=== PATIENT | female | born 1935 | race Caucasian/White ===

== ENCOUNTER 2017-03-18 08:37 | Observation (INO) | payer MEDICARE, BC ==
[~2017-03-18] VITALS: Ht 162.6 cm; Wt 62.5 kg
[~2017-03-18 08:37] MED LIST: ASPI-664 PO; ATOR40TA68 PO; CALC-385 PO; CARV3.1260 PO; LORA1TAB PO; MECL12.5 PO; NIT4 SL; OMEP20CA16 PO; PENT400T2 PO; RANO500T2 PO; TICA60TA PO; VALS80TA2 PO
[2017-03-18 08:40] VITALS: Ht 162.6 cm; Wt 62.5 kg
[2017-03-18] MEDS ORDERED: ASPIRIN 81 MG TAB PO STA (08:46)
[2017-03-18] MEDS ORDERED: NITROGLYCERIN 2% 1 GM OINT PKT TD STA (08:46)
[2017-03-18] MEDS ORDERED: NITROGLYCERIN (SL) 0.4 MG TAB SL PRN (09:00)
[2017-03-18] MEDS ORDERED: METO-448 PO (09:15)
[2017-03-18] MEDS ORDERED: TICA90TA PO (09:15)
--- NOTE | 2017-03-18 09:34 | RADRPT ---
PROCEDURE: XR Chest. CLINICAL INDICATION: Chest pain TECHNIQUE: Single frontal view of the chest was obtained. COMPARISON: None FINDINGS: The heart is within normal limits. The thoracic aorta is calcified. There are mild chronic interstitial changes throughout the lungs. There is mild right upper lobe sc arring versus linear atelectasis. There is no pleural effusion or pneumothorax. There is right shoulder calcific tendonitis. RPTAT: AA IMPRESSION: Mild chronic interstitial changes. Mild right upper lobe scarring/atelectasis. No focal consolidation. Calcified aorta consistent with atherosclerotic disease. .Alberto Lew MD, Date Time Electronically viewed and signed by .Alberto Lew MD, on 03/18/2017 09:34 .S/
[2017-03-18 09:36] LABS: ADD SCAN DIFF NO
[2017-03-18 10:00] LABS: ANION GAP 11 (8-16); BLOOD UREA NITROGEN 15 mg/dl (7-20); CALCIUM 9.4 mg/dl (8.4-10.2); CARBON DIOXIDE 30 mmol/L (21-31); CHLORIDE 99 mmol/L (97-110); CREATININE 0.82 mg/dl (0.44-1.00); GLUCOSE 90 mg/dl (70-220); POTASSIUM 4.3 mmol/L (3.5-5.1); SODIUM 136 mmol/L (135-144)
[2017-03-18 10:08] LABS: INR 0.97; PARTIAL THROMBOPLASTIN TIME 27.6 Sec (25.0-35.0); PROTIME 12.9 Sec (12.2-14.2)
[2017-03-18 10:14] LABS: TROPONIN-I < 0.012 ng/ml (0.00-0.12)
[2017-03-18 10:27] LABS: BASOPHIL # 0.1 10^3/ul (0.0-0.1); BASOPHILS % 0.8 % (0.0-2.0); EOSINOPHILS # 0.1 10^3/ul (0.0-0.5); EOSINOPHILS % 2.1 % (0.0-7.0); HEMATOCRIT 34.5 % (37.0-47.0); HEMOGLOBIN 11.4 g/dl (12.0-16.0); LYMPHOCYTES # 1.1 10^3/ul (0.8-2.9); LYMPHOCYTES % 18.8 % (15.0-51.0); MEAN CORPUSCULAR HEMOGLOBIN 29.8 pg (29.0-33.0); MEAN CORPUSCULAR VOLUME 90.1 fl (82.0-101.0); MEAN PLATELET VOLUME 11.1 fl (7.4-10.4); MONOCYTE # 0.6 10^3/ul (0.3-0.9); NEUTROPHIL # 4.1 10^3/ul (1.6-7.5); PLATELET COUNT 251 10^3/UL (140-415); RED BLOOD COUNT 3.83 10^6/ul (4.20-5.40); RED CELL DISTRIBUTION WIDTH 13.3 % (11.5-14.5); WHITE BLOOD COUNT 6.1 10^3/ul (4.8-10.8)
[2017-03-18] MEDS ORDERED: ACETAMINOPHEN 325 MG TAB PO PRN ×2 (10:30→19:00)
[2017-03-18] MEDS ORDERED: ONDANSETRON 4 MG INJ IV PRN ×2 (10:30→19:00)
--- NOTE | 2017-03-18 10:52 | ERA ---
ER Documentation Chief Complaint Date/Time DATE: 03/18/17 TIME: 10:50 Chief Complaint CHEST PAIN ON AND OFF SINCE SATURDAY HPI Patient is an 81-year-old female with coronary disease and hypertension who presents with chest pain. The symptoms started on . The patient's blood pressure was elevated at 184. His left-sided chest pain. She is concerned for heart attack. The pain comes and goes. She said that she took all of her regular medications today. She still has a slight amount of pain currently. She called Dr. Perez her loop sewer today but there was no appointment available. ROS All systems reviewed and are negative except as per history of present illness. Medications Home Meds Reported Medications Metoprolol Tartrate* (Lopressor*) 25 Mg Tab, 12.5 MG PO BID, #60 TAB 03/18/17 Ticagrelor* (Brilinta*) 90 Mg Tablet, 90 MG PO Q12, TAB 03/18/17 Ranolazine* (Ranexa*) 500 Mg Tab.sr.12h, 500 MG PO Q12, TAB 07/05/16 Valsartan* (Diovan*) 80 Mg Tablet, 80 MG PO BID, TAB 07/05/16 Atorvastatin* (Atorvastatin*) 40 Mg Tablet, 40 MG PO QHS, #30 TAB 07/05/16 Nitroglycerin* (Nitrostat*) 0.4 Mg Tab.subl, 0.4 MG SL Q5MIN Y for CHEST PAIN, BOTTLE 04/24/16 Omeprazole* (Omeprazole*) 20 Mg Capsule.dr, 20 MG PO DAILY, #30 CAP 04/24/16 Aspirin* (Aspirin* EC) 81 Mg Tablet.dr, 81 MG PO DAILY, TAB 04/24/16 Calcium Carbonate/Vitamin D3 (OYSTER SHELL CALCIUM + D TAB) 1 Each Tablet, 1 EACH PO BID, TAB 04/24/16 Discontinued Reported Medications Ticagrelor (Brilinta) 60 Mg Tablet, 60 MG PO Q12, TAB 07/05/16 Carvedilol* (Carvedilol*) 3.125 Mg Tablet, 3.125 MG PO BID, #60 TAB 07/05/16 Lorazepam* (Lorazepam*) 1 Mg Tablet, 1 MG PO HS Y for ANXIETY, #30 TAB 04/24/16 Meclizine Hcl* (Meclizine Hcl*) 12.5 Mg Tablet, 12.5 MG PO TID, TAB 04/24/16 Pentoxifylline* (Pentoxifylline*) 400 Mg Tablet.sa, 400 MG PO TID, TAB 04/24/16 Allergies Allergies: Coded Allergies: Penicillins (Verified Allergy, Unknown, 03/18/17) iron (Verified Allergy, Unknown, 03/18/17) PMhx/Soc History of Surgery: No (stents x3) Anesthesia Reaction: No Hx Neurological Disorder: No Hx Respiratory Disorders: No Hx Cardiac Disorders: Yes (HTN,HYPERLIPIDEMIA) Hx Psychiatric Problems: Yes (ANXIETY) Hx Miscellaneous Medical Probl: Yes (PVD) Hx Alcohol Use: No Hx Substance Use: No Hx Tobacco Use: No Smoking Status: Never smoker FmHx Family History: No coronary disease Physical Exam Vitals Vital Signs Date Time Temp Pulse Resp B/P Pulse Ox O2 Delivery O2 Flow Rate FiO2 03/18/17 10:39 98.1 54 16 139/68 100 Room Air 03/18/17 08:40 97.9 60 18 172/73 100 Physical Exam Const: No acute distress Head: Atraumatic Eyes: Normal Conjunctiva ENT: Normal External Ears, Nose and Mouth. Neck: Full range of motion..~ No meningismus. Resp: Clear to auscultation bilaterally Cardio: Regular rate and rhythm, no murmurs Abd: Soft, non tender, non distended. Normal bowel sounds Skin: No petechiae or rashes Back: No midline or flank tenderness Ext: No cyanosis, or edema Neur: Awake and alert Psych: Normal Mood and Affect Result Diagram: 03/18/1792403/18/1725 Results 24 hrs Laboratory Tests Test 03/18/17 09:25 White Blood Count 6.110^3/ul Red Blood Count 3.8310^6/ul Hemoglobin 11.4g/dl Hematocrit 34.5% Mean Corpuscular Volume 90.1fl Mean Corpuscular Hemoglobin 29.8pg Mean Corpuscular Hemoglobin Concent 33.0g/dl Red Cell Distribution Width 13.3% Platelet Count 48304^3/UL Mean Platelet Volume 11.1fl Neutrophils % 68.0% Lymphocytes % 18.8% Monocytes % 10.0% Eosinophils % 2.1% Basophils % 0.8% Nucleated Red Blood Cells % 0.0/100WBC Neutrophils # 4.110^3/ul Lymphocytes # 1.110^3/ul Monocytes # 0.610^3/ul Eosinophils # 0.110^3/ul Basophils # 0.110^3/ul Nucleated Red Blood Cells # 0.010^3/ul Prothrombin Time 12.9Sec Prothrombin Time Ratio 1.0 INR International Normalized Ratio 0.97 Activated Partial Thromboplast Time 27.6Sec Sodium Level 136mmol/L Potassium Level 4.3mmol/L Chloride Level 99mmol/L Carbon Dioxide Level 30mmol/L Anion Gap 11 Blood Urea Nitrogen 15mg/dl Creatinine 0.82mg/dl Glucose Level 90mg/dl Calcium Level 9.4mg/dl Troponin I < 0.012ng/ml Current Medications Medications (Trade) Dose Ordered Sig/Kamila Route PRN Reason Start Time Stop Time Status Last Admin Dose Admin Aspirin (Aspirin) 162 mg ONCE STAT PO 03/18/17 08:46 03/18/17 08:47 DC 03/18/17 09:28 Nitroglycerin (Nitroglycerin 2% Oint) 1 inch ONCE STAT TD 03/18/17 08:46 03/18/17 08:47 DC 03/18/17 09:31 Nitroglycerin (Nitroglycerin (Sl Tab) 0.4 Mg) 1 tab Q5M UP TO 3 DOSES PRN SL CHEST PAIN 03/18/17 09:00 03/18/17 09:29 Ondansetron HCl (Zofran Inj) 4 mg ER BRIDGE PRN IV NAUSEA AND/OR VOMITING 03/18/17 10:30 03/19/17 10:29 Acetaminophen (Tylenol Tab) 650 mg ER BRIDGE PRN PO MILD PAIN/FEVER 03/18/17 10:30 03/19/17 10:29 Procedures/MDM EKG #1 read by me: Rate/Rhythm: Right bundle branch block a rate of 60 Intervals: Normal Impression: Right bundle branch block without ischemia EKG #2 read by me: Rate/Rhythm: Right bundle branch block with bradycardia at a rate of 56 Intervals: Normal Impression: Right bundle branch block with bradycardia Chest x-ray shows no pneumonia or pneumothorax per radiology. Patient is an 81-year-old female with cardiac risk factors who presents with chest pain. Given her age and comorbidities I am concerned about acute coronary syndrome. She was given aspirin nitroglycerin. At this point I doubt pneumothorax, pneumonia, pulmonary embolism, or aortic dissection. I spoke with the panel team for admission and the patient will be admitted to a telemetry bed as she has [employer] insurance and the panel team is admitting for [employer]. Departure Diagnosis: Primary Impression: Chest pain Qualified Code: R07.9 - Chest pain, unspecified type Condition: DAYANNA Gonsales MD Mar 18, 2017 10:52
[2017-03-18 12:08] VITALS: TEMP 98.1
[2017-03-18 12:45] VITALS: PULSE 84
[2017-03-18 16:00] VITALS: PULSE 55
[2017-03-18 16:20] LABS: CREATINE KINASE 44 IU/L (23-200)
[2017-03-18 16:32] LABS: CK-MB 1.41 ng/ml (0.0-2.4)
[2017-03-18 16:33] LABS: TROPONIN-I < 0.012 ng/ml (0.00-0.12)
[2017-03-18] MEDS ORDERED: NACL 0.9% 3 ML SYG IV SCH (19:00)
[2017-03-18] MEDS ORDERED: DOCUSATE SODIUM 100 MG CAP PO PRN (19:00)
[2017-03-18] MEDS ORDERED: morphine 2 MG INJ IV PRN (19:00)
[2017-03-18] MEDS ORDERED: ZOLPIDEM 5 MG TAB PO PRN (19:00)
[2017-03-18] MEDS ORDERED: HYDROCODONE/APAP (5/325) TAB PO PRN (19:00)
--- NOTE | 2017-03-18 19:25 | HP ---
Date/Time of Note Date/Time of Note DATE: 03/18/17 TIME: 19:17 Assessment/Plan VTE Prophylaxis VTE Prophylaxis Intervention: ambulation Lines/Catheters [facility] Urinary Cath still in place: No Assessment/Plan Chief Complaint/Hosp Course 1. Chest pain rule out ACS Trend troponins, continue aspirin and beta-chiki as well as statin Consult cardiology and obtain 2D echo 2. History of coronary disease status post PCI in the past Continue home aspirin, Brilinta, beta-chiki and statin 3. Hypertension Continue home metoprolol and Diovan Prophylaxis: Ambulation Problems: HPI/ROS Admit Date/Time Admit Date/Time Mar 18, 2017 at 10:27 Hx of Present Illness Patient is a 81-year-old female with a history of coronary artery disease status post PCI, hypertension dyslipidemia. Patient presents with chest pain that began yesterday is now resolved. She denies any associated diaphoresis, nausea or vomiting denies any shortness of breath. Patient cannot describe the exact nature of her pain. Patient follows up with Dr. Perez in clinic, she currently has no complaints. ROS Constitutional: improved, no complaints Eyes: no complaints ENT: no complaints Respiratory: no complaints Cardiovascular: no complaints Gastrointestinal: no complaints Genitourinary: no complaints Musculoskeletal: no complaints Skin: no complaints Neurologic: no complaints Endocrine: no complaints Lymphatic: no complaints Psychological: nl mood/affect, no complaints Immunologic: no complaints PMH/Family/Social Past Medical History Medical History: coronary artery disease, high cholesterol, hypertension Past Surgical History Past Surgical Hx: no surgical history Family History Significant Family History: no pertinent family hx Social History Alcohol Use: none Smoking Status: Never smoker Drug Use: none Exam/Review of Systems Vital Signs Vitals Vital Signs Date Time Temp Pulse Resp B/P Pulse Ox O2 Delivery O2 Flow Rate FiO2 03/18/17 16:00 55 03/18/17 12:08 98.1 18 146/74 100 Room Air Exam Constitutional: alert, oriented Respiratory: clear to auscultation Cardiovascular: regular rate and rhythm Gastrointestinal: soft, No distended Musculoskeletal: nl extremities to inspection Labs Result Diagram: 03/18/17 0925 03/18/17 0925 Medications Medications Current Medications Ondansetron HCl (Zofran Inj) 4 mg Q6H PRN IV NAUSEA AND/OR VOMITING; Start 03/18 at 19:00 Acetaminophen (Tylenol Tab) 650 mg Q6H PRN PO PAIN LEVEL 1-3 OR FEVER; Start at 19:00 Acetaminophen/ Hydrocodone Bitart ([place] (5/325)) 1 tab Q6H PRN PO MODERATE PAIN LEVEL 4-6; Start 03/18/17 at 19:00 Morphine Sulfate (morphine) 2 mg Q4H PRN IV SEVERE PAIN LEVEL 7-10; Start at 19:00 Docusate Sodium (Colace) 100 mg Q12H PRN PO CONSTIPATION; Start 03/18/17 at 19: 00 Zolpidem Tartrate (Ambien) 5 mg QHS PRN PO SLEEP; Start 03/18/17 at 19:00 Aspirin (Halfprin) 81 mg DAILY PO ; Start 03/19/17 at 09:00 Atorvastatin Calcium (Lipitor) 40 mg QHS PO ; Start 03/18/17 at 21:00 Calcium/Vitamin D (Oyster Shell/ Vit-D (500/200)) 1 tab BID PO ; Start 03/18/17 at 21:00 Metoprolol Tartrate (Lopressor) 12.5 mg BID PO ; Start 03/18/17 at 21:00 Ranolazine (Ranexa) 500 mg Q12 PO ; Start 03/18/17 at 21:00 Ticagrelor (Brilinta) 90 mg Q12 PO ; Start 03/18/17 at 21:00 Valsartan (Diovan) 80 mg BID PO ; Start 03/18/17 at 21:00 Pantoprazole (Protonix Tab) 40 mg DAILY@06 PO ; Start 03/19/17 at 06:00 TYLER SAGASTUME Mar 18, 2017 19:24
[2017-03-18 20:00] VITALS: PULSE 65
[2017-03-18 20:15] VITALS: BP 131/66; RESP 18
[2017-03-18 20:16] VITALS: BP 137/63; RESP 22
[2017-03-18] MEDS: CALCIUM/VITAMIN D (500/200) TAB PO SCH (20:59)
[2017-03-18] MEDS: RANOLAZINE (SR) 500 MG TAB PO SCH (20:59)
[2017-03-18] MEDS: ATORVASTATIN 40 MG TAB PO SCH (20:59)
[2017-03-18] MEDS: METOPROLOL 25 MG TAB PO SCH (21:00)
[2017-03-18] MEDS: VALSARTAN 80 MG TAB PO SCH (21:00)
[2017-03-18 21:07] LABS: CREATINE KINASE 52 IU/L (23-200)
[2017-03-18] MEDS: TICAGRELOR 90 MG TABLET PO SCH (21:08)
[2017-03-18 21:20] LABS: CK-MB 1.67 ng/ml (0.0-2.4)
[2017-03-18 21:21] LABS: TROPONIN-I < 0.012 ng/ml (0.00-0.12)
[2017-03-19] VITALS (12 sets, daily range): BP systolic 119–142; BP diastolic 57–70; PULSE 57–68; RESP 18–20
[2017-03-19] MEDS: PANTOPRAZOLE (EC) 40 MG TAB PO SCH (05:04)
[2017-03-19 06:10] LABS: ADD SCAN DIFF NO
[2017-03-19 06:47] LABS: CALCIUM 9.7 mg/dl (8.4-10.2); CHOL/HDL RATIO 2.7 RATIO; CREATININE 0.82 mg/dl (0.44-1.00); MAGNESIUM 1.7 mg/dl (1.7-2.5); PHOSPHORUS 3.9 mg/dl (2.5-4.9)
[2017-03-19 06:57] LABS: T3 UPTAKE 34.7 % (23.5-40.5)
[2017-03-19 07:44] LABS: BASOPHILS % 0.7 % (0.0-2.0); EOSINOPHILS # 0.2 10^3/ul (0.0-0.5); EOSINOPHILS % 3.5 % (0.0-7.0); HEMOGLOBIN 11.6 g/dl (12.0-16.0); LYMPHOCYTES # 1.2 10^3/ul (0.8-2.9); LYMPHOCYTES % 21.2 % (15.0-51.0); MEAN CORPUSCULAR HEMOGLOBIN 30.8 pg (29.0-33.0); MEAN CORPUSCULAR HGB CONC 34.1 g/dl (32.0-37.0); MEAN CORPUSCULAR VOLUME 90.2 fl (82.0-101.0); MEAN PLATELET VOLUME 11.3 fl (7.4-10.4); MONOCYTE # 0.6 10^3/ul (0.3-0.9); MONOCYTES % 11.3 % (0.0-11.0); NEUTROPHIL # 3.5 10^3/ul (1.6-7.5); NEUTROPHILS % 62.9 % (39.0-77.0); PLATELET COUNT 241 10^3/UL (140-415); RED BLOOD COUNT 3.77 10^6/ul (4.20-5.40); RED CELL DISTRIBUTION WIDTH 13.4 % (11.5-14.5); WHITE BLOOD COUNT 5.5 10^3/ul (4.8-10.8)
[2017-03-19] MEDS: TICAGRELOR 90 MG TABLET PO SCH ×2 (09:23→21:01)
[2017-03-19] MEDS: CALCIUM/VITAMIN D (500/200) TAB PO SCH ×2 (09:23→20:59)
[2017-03-19] MEDS: ASPIRIN (EC) 81 MG TAB PO SCH (09:23)
[2017-03-19] MEDS: RANOLAZINE (SR) 500 MG TAB PO SCH ×2 (09:23→20:59)
[2017-03-19] MEDS: VALSARTAN 80 MG TAB PO SCH ×2 (09:23→20:59)
[2017-03-19] MEDS: METOPROLOL 25 MG TAB PO SCH ×2 (09:24→21:00)
--- NOTE | 2017-03-19 12:25 | CONS ---
Date/Time of Note Date/Time of Note DATE: 03/19/17 TIME: 12:21 Assessment/Plan Assessment/Plan Additional Assessment/Plan 1. CP/CAD - coronary disease and hypertension who presents with chest pain. The symptoms started on . The patient's blood pressure was elevated at 184. His left-sided chest pain. She is concerned for heart attack. The pain comes and goes. She said that she took all of her regular medications today. She NO LONGER HAS ANY pain. She called Dr. Perez her technical marketing engineer today but there was no appointment available. Pt now with h/o ARLETTE 04/2016 - re- stratification with stress test - inpt vs outpt advised. 2. HTN, well Rx - con't to adjust therapy. 3. RBBB - chronic, will monitor 4. Diast HF - chronic, euvolemic by exam 5. dyslipidemia =- stain Rx in place Consultation Date/Type/Reason Admit Date/Time Mar 18, 2017 at 10:27 Initial Consult Date 24 HR Interval Summary Free Text/Dictation Cardiology Consult CC: CP HPI: Patient is an 81-year-old female with coronary disease and hypertension who presents with chest pain. The symptoms started on . The patient's blood pressure was elevated at 184. His left-sided chest pain. She is concerned for heart attack. The pain comes and goes. She said that she took all of her regular medications today. She NO LONGER HAS ANY pain. She called Dr. Perez her technical marketing engineer today but there was no appointment available. Pt now with h/o ARLETTE 04/2016 - re-stratification with stress test - inpt vs outpt advised. PMH: HTN,CAD, h/o ARLETTE All: Pen, iron Soc: no tobacco, no EtOH MEds: reviewed ROS: No fever, no chills, no nausea, no vomiting, no diarrhea/constipation No recent weight changes No chest pain now, no PND, no orthopnea No dizziness, blurred vision No thirst, no heat or cold intolerance Exam/Review of Systems Vital Signs Vitals Vital Signs Date Time Temp Pulse Resp B/P Pulse Ox O2 Delivery O2 Flow Rate FiO2 03/19/17 11:28 97.6 58 18 142/70 100 03/18/17 12:08 Room Air Intake and Output 03/18/17 03/18/17 03/19/17 15:00 23:00 07:00 Intake Total 600 ml 300 ml Balance 600 ml 300 ml Exam General: WN/WD/NAD, AOx 3 [place] HEENT: Unicetric/atraumatic/EOMI ( follow commands) NECK: JVD elevated, no thyromegaly Lymph: no lymphadenopathy HEART: regular with no S3, II/ systolic murmur at apex LUNGS: Coarse sounds ABD: soft, NT, ND, +BS : Intact Neuro: non focal SKIN: chronic changes EXT: trace edema Results Result Diagram: 03/19/17 0540 03/19/17 0540 Results 24 hrs Laboratory Tests Test 03/18/17 15:25 03/18/17 20:30 03/19/17 05:40 Creatine Kinase 44 52 Creatine Kinase Index 3.2 3.2 Creatinine Kinase MB (Mass) 1.41 1.67 Troponin I < 0.012 < 0.012 White Blood Count 5.5 Red Blood Count 3.77 L Hemoglobin 11.6 L Hematocrit 34.0 L Mean Corpuscular Volume 90.2 Mean Corpuscular Hemoglobin 30.8 Mean Corpuscular Hemoglobin Concent 34.1 Red Cell Distribution Width 13.4 Platelet Count 241 Mean Platelet Volume 11.3 H Neutrophils % 62.9 Lymphocytes % 21.2 Monocytes % 11.3 H Eosinophils % 3.5 Basophils % 0.7 Nucleated Red Blood Cells % 0.0 Neutrophils # 3.5 Lymphocytes # 1.2 Monocytes # 0.6 Eosinophils # 0.2 Basophils # 0.0 Nucleated Red Blood Cells # 0.0 Sodium Level 142 Potassium Level 4.0 Chloride Level 98 Carbon Dioxide Level 29 Anion Gap 19 #H Blood Urea Nitrogen 16 Creatinine 0.82 Glucose Level 97 Hemoglobin A1c 5.7 Calcium Level 9.7 Phosphorus Level 3.9 Magnesium Level 1.7 Triglycerides Level 105 Cholesterol Level 159 LDL Cholesterol, Calculated 81 HDL Cholesterol 57 Cholesterol/HDL Ratio 2.7 Free Thyroxine Index 2.78 Thyroxine (T4) 8.0 Triiodothyronine (T3) Uptake 34.7 Medications Medications Current Medications Ondansetron HCl (Zofran Inj) 4 mg Q6H PRN IV NAUSEA AND/OR VOMITING; Start 03/18 at 19:00 Acetaminophen (Tylenol Tab) 650 mg Q6H PRN PO PAIN LEVEL 1-3 OR FEVER; Start at 19:00 Acetaminophen/ Hydrocodone Bitart ([place] (5/325)) 1 tab Q6H PRN PO MODERATE PAIN LEVEL 4-6; Start 03/18/17 at 19:00 Morphine Sulfate (morphine) 2 mg Q4H PRN IV SEVERE PAIN LEVEL 7-10; Start at 19:00 Docusate Sodium (Colace) 100 mg Q12H PRN PO CONSTIPATION; Start 03/18/17 at 19: 00 Zolpidem Tartrate (Ambien) 5 mg QHS PRN PO SLEEP; Start 03/18/17 at 19:00 Aspirin (Halfprin) 81 mg DAILY PO Last administered on 03/19/17 09:23; Admin Dose 81 MG; Start 03/19/17 at 09:00 Atorvastatin Calcium (Lipitor) 40 mg QHS PO Last administered on 03/18/17 20:59 ; Admin Dose 40 MG; Start 03/18/17 at 21:00 Calcium/Vitamin D (Oyster Shell/ Vit-D (500/200)) 1 tab BID PO Last administered on 03/19/17 09:23; Admin Dose 1 TAB; Start 03/18/17 at 21:00 Metoprolol Tartrate (Lopressor) 12.5 mg BID PO Last administered on 03/19/17 09 :24; Admin Dose 12.5 MG; Start 03/18/17 at 21:00 Ranolazine (Ranexa) 500 mg Q12 PO Last administered on 03/19/17 09:23; Admin Dose 500 MG; Start 03/18/17 at 21:00 Ticagrelor (Brilinta) 90 mg Q12 PO Last administered on 03/19/17 09:23; Admin Dose 90 MG; Start 03/18/17 at 21:00 Valsartan (Diovan) 80 mg BID PO Last administered on 03/19/17 09:23; Admin Dose 80 MG; Start 03/18/17 at 21:00 Pantoprazole (Protonix Tab) 40 mg DAILY@06 PO Last administered on 03/19/17 05: 04; Admin Dose 40 MG; Start 03/19/17 at 06:00 YAMILEX SPRINGER MD Mar 19, 2017 12:25
--- NOTE | 2017-03-19 13:11 | RADRPT ---
Echocardiogram Report Patient Name: DUONG GONZALEZ Gender: Female Date: 1935 Study Date: 19-Mar-2017 Conference Services Coordinator: [facility] Location: [id number] Ref. Physician: TYLER SAGASTUME Quality: Adequate Procedures: Transthoracic echocardiogram with complete 2D, M-Mode, and doppler examination. Indications: Chest Pain. 2D/M Mode Doppler Measurement Value Normal Ranges Measurement Value Normal Ranges LVIDd 2D 4.0 3.5 - 5.6 cm AV Peak Sergo 1.7 m/sec LVIDs 2D 2.8 2.1 - 4.1 cm AV Peak PG 12.0 mmHg FS 2D 31.1 % LVOT Peak Sergo 1.2 m/sec LVPWd 2D 1.0 0.6 - 1.1 cm LVOT Peak PG 5.0 mmHg IVSd 2D 1.1 0.6 - 1.1 cm MV E Peak Sergo 0.6 m/sec IVS/LVPW 2D 1.1 MV A Peak Sergo 0.7 m/sec AoR Diam 2D 2.8 2.0 - 3.7 cm MV E/A 0.8 LA/Ao 2D 1 0 - 1 MV Decel Time 254 msec EDV 2D 63.5 cm3 MV E/A 0.8 ESV 2D 20.8 cm3 TR Peak Sergo 2.9 m/sec LA Dimen 2D 3.2 2.3 - 4.0 cm TR Peak PG 34.0 mmHg RVSP 44.0 mmHg Findings Left Ventricle: Normal left ventricular systolic function. Normal left ventricular cavity size. Normal left ventricular wall thickness. Ejection fraction is visually estimated at 60 %. Tissue Doppler/Mitral Doppler indices are consistent with impaired relaxation (Stage I diastolic dysfunction). Right Ventricle: Normal right ventricular systolic function. Mild enlargement of right ventricle. Left Atrium: The left atrium is normal in size. Right Atrium: There is mild enlargement of right atrium. Mitral Valve: Mild mitral leaflet calcification. Mild mitral annular calcification. Trace mitral regurgitation. Aortic Valve: Aortic cusps appear mildly calcified. Aortic valve opens normally. Mild aortic valve regurgitation. Tricuspid Valve: Normal appearance of the tricuspid valve. Estimated peak PA systolic pressure 44 mmHg. There is mild tricuspid regurgitation. Pulmonic Valve: Pulmonic valve not well visualized. There is trace pulmonic regurgitation. Pericardium: Normal pericardium with no significant pericardial effusion. Aorta: Normal aortic root. IVC: Normal size and normal respiratory collapse consistent with normal right atrial pressure. Conclusions 1.Normal left ventricular systolic function. Normal left ventricular cavity size. Normal left ventricular wall thickness. Ejection fraction is visually estimated at 60 %. Tissue Doppler/Mitral Doppler indices are consistent with impaired relaxation (Stage I diastolic dysfunction). 2.Mild mitral leaflet calcification. Mild mitral annular calcification. Trace mitral regurgitation. 3.Aortic cusps appear mildly calcified. Aortic valve opens normally. Mild aortic valve regurgitation. 4.Normal appearance of the tricuspid valve. Estimated peak PA systolic pressure 44 mmHg. There is mild tricuspid regurgitation. Electronically Signed By: Dustin Kumar 19-Mar-2017 13:10:37 -[id number] Patient Name: DUONG GONZALEZ Study Date: 19-Mar-2017 [id number]
--- NOTE | 2017-03-19 15:00 | PN ---
Date/Time of Note Date/Time of Note DATE: 03/19/17 TIME: 14:58 Assessment/Plan VTE Prophylaxis VTE Prophylaxis Intervention: ambulation Lines/Catheters [facility] Urinary Cath still in place: No Assessment/Plan Chief Complaint/Hosp Course 1. Chest pain rule out ACS Troponins are negative, cardiology consultation appreciated plan is for stress test in-house Continue aspirin and beta-chiki as well as statin 2. History of coronary disease status post PCI in the past Continue home aspirin, Brilinta, beta-chiki and statin 3. Hypertension Continue home metoprolol and Diovan Prophylaxis: Ambulation Problems: Subjective 24 Hr Interval Summary Constitutional: no complaints Exam/Review of Systems Vital Signs Vitals Vital Signs Date Time Temp Pulse Resp B/P Pulse Ox O2 Delivery O2 Flow Rate FiO2 03/19/17 12:21 67 03/19/17 11:28 97.6 18 142/70 100 03/18/17 12:08 Room Air Intake and Output 03/18/17 03/18/17 03/19/17 15:00 23:00 07:00 Intake Total 600 ml 300 ml Balance 600 ml 300 ml Exam Constitutional: alert Respiratory: clear to auscultation Cardiovascular: regular rate and rhythm Gastrointestinal: soft, No distended Musculoskeletal: nl extremities to inspection Results Result Diagram: 03/19/17 0540 03/19/17 0540 Results 24 hrs Laboratory Tests Test 03/18/17 15:25 03/18/17 20:30 03/19/17 05:40 Creatine Kinase 44 52 Creatine Kinase Index 3.2 3.2 Creatinine Kinase MB (Mass) 1.41 1.67 Troponin I < 0.012 < 0.012 White Blood Count 5.5 Red Blood Count 3.77 L Hemoglobin 11.6 L Hematocrit 34.0 L Mean Corpuscular Volume 90.2 Mean Corpuscular Hemoglobin 30.8 Mean Corpuscular Hemoglobin Concent 34.1 Red Cell Distribution Width 13.4 Platelet Count 241 Mean Platelet Volume 11.3 H Neutrophils % 62.9 Lymphocytes % 21.2 Monocytes % 11.3 H Eosinophils % 3.5 Basophils % 0.7 Nucleated Red Blood Cells % 0.0 Neutrophils # 3.5 Lymphocytes # 1.2 Monocytes # 0.6 Eosinophils # 0.2 Basophils # 0.0 Nucleated Red Blood Cells # 0.0 Sodium Level 142 Potassium Level 4.0 Chloride Level 98 Carbon Dioxide Level 29 Anion Gap 19 #H Blood Urea Nitrogen 16 Creatinine 0.82 Glucose Level 97 Hemoglobin A1c 5.7 Calcium Level 9.7 Phosphorus Level 3.9 Magnesium Level 1.7 Triglycerides Level 105 Cholesterol Level 159 LDL Cholesterol, Calculated 81 HDL Cholesterol 57 Cholesterol/HDL Ratio 2.7 Free Thyroxine Index 2.78 Thyroxine (T4) 8.0 Triiodothyronine (T3) Uptake 34.7 Medications Medications Current Medications Ondansetron HCl (Zofran Inj) 4 mg Q6H PRN IV NAUSEA AND/OR VOMITING; Start 03/18 at 19:00 Acetaminophen (Tylenol Tab) 650 mg Q6H PRN PO PAIN LEVEL 1-3 OR FEVER; Start at 19:00 Acetaminophen/ Hydrocodone Bitart ([place] (5/325)) 1 tab Q6H PRN PO MODERATE PAIN LEVEL 4-6; Start 03/18/17 at 19:00 Morphine Sulfate (morphine) 2 mg Q4H PRN IV SEVERE PAIN LEVEL 7-10; Start at 19:00 Docusate Sodium (Colace) 100 mg Q12H PRN PO CONSTIPATION; Start 03/18/17 at 19: 00 Zolpidem Tartrate (Ambien) 5 mg QHS PRN PO SLEEP; Start 03/18/17 at 19:00 Aspirin (Halfprin) 81 mg DAILY PO Last administered on 03/19/17 09:23; Admin Dose 81 MG; Start 03/19/17 at 09:00 Atorvastatin Calcium (Lipitor) 40 mg QHS PO Last administered on 03/18/17 20:59 ; Admin Dose 40 MG; Start 03/18/17 at 21:00 Calcium/Vitamin D ([place]yster [place]/ Vit-D (500/200)) 1 tab BID PO Last administered on 03/19/17 09:23; Admin Dose 1 TAB; Start 03/18/17 at 21:00 Metoprolol Tartrate (Lopressor) 12.5 mg BID PO Last administered on 03/19/17 09 :24; Admin Dose 12.5 MG; Start 03/18/17 at 21:00 Ranolazine (Ranexa) 500 mg Q12 PO Last administered on 03/19/17 09:23; Admin Dose 500 MG; Start 03/18/17 at 21:00 Ticagrelor (Brilinta) 90 mg Q12 PO Last administered on 03/19/17 09:23; Admin Dose 90 MG; Start 03/18/17 at 21:00 Valsartan (Diovan) 80 mg BID PO Last administered on 03/19/17 09:23; Admin Dose 80 MG; Start 03/18/17 at 21:00 Pantoprazole (Protonix Tab) 40 mg DAILY@06 PO Last administered on 03/19/17 05: 04; Admin Dose 40 MG; Start 03/19/17 at 06:00 TYLER SAGASTUME Mar 19, 2017 14:59
[2017-03-19] MEDS: ATORVASTATIN 40 MG TAB PO SCH (20:59)
[2017-03-20] VITALS (10 sets, daily range): BP systolic 126–138; BP diastolic 65–71; PULSE 54–67; RESP 18–20
[2017-03-20] MEDS: PANTOPRAZOLE (EC) 40 MG TAB PO SCH ×2 (06:00→08:17)
[2017-03-20] MEDS: VALSARTAN 80 MG TAB PO SCH (08:15)
[2017-03-20] MEDS: RANOLAZINE (SR) 500 MG TAB PO SCH (08:16)
[2017-03-20] MEDS: CALCIUM/VITAMIN D (500/200) TAB PO SCH (08:17)
[2017-03-20] MEDS: ASPIRIN (EC) 81 MG TAB PO SCH (08:17)
[2017-03-20] MEDS: METOPROLOL 25 MG TAB PO SCH (08:18)
[2017-03-20] MEDS: TICAGRELOR 90 MG TABLET PO SCH (08:20)
[2017-03-20] MEDS ORDERED: REGADENOSON 0.4 MG/5 ML SYG ONE (11:07)
--- NOTE | 2017-03-20 11:50 | CONS ---
Date/Time of Note Date/Time of Note DATE: 03/20/17 TIME: 11:48 Assessment/Plan Assessment/Plan Chief Complaint/Hosp Course IMp: 1.Chest pain-neg trop x 3 2.H/O PTCA/stent 05/01 3.HTN 4.HL 5.RBBB by ecg REcc: -Tele -Continue asa/brilinta -Continue BB -Continue statin -Continue ranexa -Lexiscan stress test today Problems: Consultation Date/Type/Reason Admit Date/Time Mar 18, 2017 at 10:27 Initial Consult Date 03/19/17 Type of Consultation: Cardiology Reason for Consultation Chest pain Referring Provider: LORNA HENAO Exam/Review of Systems Vital Signs Vitals Vital Signs Date Time Temp Pulse Resp B/P Pulse Ox O2 Delivery O2 Flow Rate FiO2 03/20/17 11:36 98.6 72 18 128/65 99 03/18/17 12:08 Room Air Intake and Output 03/19/17 03/19/17 03/20/17 15:00 23:00 07:00 Intake Total 960 ml 550 ml Balance 960 ml 550 ml Exam Review of Systems: CONSTITUTIONAL: No fevers, chills. PULMONARY: No sob CARDIOVASCULAR: intermittent chest pain GASTROINTESTINAL: No nausea/vomiting. GENITOURINARY: No hematuria/dysuria. MUSCULOSKELETAL: No myagias/arthalgias. PSYCHIATRIC: The patient denies depression. NEUROLOGIC: No weakness Constitutional: alert, oriented Psych: no complaints Head: normocephalic ENMT: mucosa pink and moist Neck: supple Respiratory: clear to auscultation Cardiovascular: regular rate and rhythm Gastrointestinal: soft Musculoskeletal: muscle tone (normal) Extremities: edema (none) Neurological: other (No focal deficits) Results Result Diagram: 03/19/17 0540 03/19/17 0540 Medications Medications Current Medications Ondansetron HCl (Zofran Inj) 4 mg Q6H PRN IV NAUSEA AND/OR VOMITING; Start 03/18 at 19:00 Acetaminophen (Tylenol Tab) 650 mg Q6H PRN PO PAIN LEVEL 1-3 OR FEVER; Start at 19:00 Acetaminophen/ Hydrocodone Bitart (Newman (5/325)) 1 tab Q6H PRN PO MODERATE PAIN LEVEL 4-6; Start 03/18/17 at 19:00 Morphine Sulfate (morphine) 2 mg Q4H PRN IV SEVERE PAIN LEVEL 7-10; Start at 19:00 Docusate Sodium (Colace) 100 mg Q12H PRN PO CONSTIPATION; Start 03/18/17 at 19: 00 Zolpidem Tartrate (Ambien) 5 mg QHS PRN PO SLEEP; Start 03/18/17 at 19:00 Aspirin (Halfprin) 81 mg DAILY PO Last administered on 03/20/17 08:17; Admin Dose 81 MG; Start 03/19/17 at 09:00 Atorvastatin Calcium (Lipitor) 40 mg QHS PO Last administered on 03/19/17 20:59 ; Admin Dose 40 MG; Start 03/18/17 at 21:00 Calcium/Vitamin D (Oyster Shell/ Vit-D (500/200)) 1 tab BID PO Last administered on 03/20/17 08:17; Admin Dose 1 TAB; Start 03/18/17 at 21:00 Metoprolol Tartrate (Lopressor) 12.5 mg BID PO Last administered on 03/20/17 08 :18; Admin Dose 12.5 MG; Start 03/18/17 at 21:00 Ranolazine (Ranexa) 500 mg Q12 PO Last administered on 03/20/17 08:16; Admin Dose 500 MG; Start 03/18/17 at 21:00 Ticagrelor (Brilinta) 90 mg Q12 PO Last administered on 03/20/17 08:20; Admin Dose 90 MG; Start 03/18/17 at 21:00 Valsartan (Diovan) 80 mg BID PO Last administered on 03/20/17 08:15; Admin Dose 80 MG; Start 03/18/17 at 21:00 Pantoprazole (Protonix Tab) 40 mg DAILY@06 PO Last administered on 03/20/17 08: 17; Admin Dose 40 MG; Start 03/19/17 at 06:00 ROSA ABRAHAM Mar 20, 2017 11:50
--- NOTE | 2017-03-20 12:04 | OPR ---
Date/Time of Note Date/Time of Note DATE: 03/20/17 TIME: 11:59 Operative Report Procedure Date: Mar 20, 2017 Preoperative Diagnosis chest pain Postoperative Diagnosis chest pain Operation Performed Lexiscan stress test Surgeon: ROSA ABRAHAM Anesthesia: other (none) Estimated Blood Loss: none Complications: None Pt Condition Post Procedure: stable Disposition: other (telemetry floor) Indications chest pain Operative\Procedure Findings Baseline ECG S Alpesh @55, RBBB Baseline V.S.:P 55 BP 131/65 1.No lexiscan induced STTWA's from baseline abnormalities that are diagnostic for cardiac ischemia. 2.Nuclear images to follow in separate report Procedure Description Lexican infusion over 10 seconds followed by radiolabled tracer. Test was stopped due to completion of protocol. ROSA ABRAHAM Mar 20, 2017 12:04
--- NOTE | 2017-03-20 15:00 | RADRPT ---
PROCEDURE: Nuclear medicine myocardial perfusion scan CLINICAL INDICATION: Chest pain TECHNIQUE: 31.2 mCi of technetium 99m Cardiolite was administered for the stress study. 10.2 mCi of technetium 99m Cardiolite was administered for the resting study. The patient was stressed with 0 .4 mg of Lexiscan. Images were reviewed in the short axis, vertical long axis, and horizontal long axis views. Wall motion was assessed and ejection fraction was calculated as well. Images were revi ewed on a high-resolution PACS workstation. COMPARISON: None available FINDINGS: Left ventricular size is within normal limits. There is moderate soft tissue and bowel attenuation artifact. The stress tomographic images demonstrate a normal pattern of perfusion. The resting nubia ographic images demonstrate a similar pattern. There is no evidence for reversible ischemia. Wall motion is normal. The ejection fraction is calculated at 70%. IMPRESSION: 1. Negative myocardial perfusion scan. 2. There is no evidence for reversible ischemia. 3. Normal wall motion with normal ejection fraction of 70%. RPTAT: HMJB .Gold Capps MD, MD Date Time Electronically viewed and signed by .Gold Capps MD, MD on 03/20/2017 15:00 .B/
--- NOTE | 2017-03-20 16:26 | PDOCDIS ---
Discharge Instructions CONDITION Patient Condition: Good HOME CARE INSTRUCTIONS: Diet Instructions: Regular ACTIVITY: Activity Restrictions: No Restrictions FOLLOW UP/APPOINTMENTS Follow-up Plan FOLLOW UP WITH YOUR PRIMARY CARE PHYSICIAN IN 1-2 WEEKS, FOLLOW UP WITH CARDIOLOGY INSTRUCTED TYLER SAGASTUME Mar 20, 2017 16:26
--- NOTE | 2017-03-20 16:29 | DS ---
Date/Time of Note Date/Time of Note DATE: 03/20/17 TIME: 16:26 Discharge Summary Admission/Discharge Info Admit Date/Time Mar 18, 2017 at 10:27 Discharge Date/Time 03/20/17 Discharge Diagnosis 1. Chest pain rule out ACS Troponins are negative, nuclear stress test negative 2. History of coronary disease status post PCI in the past Continue home aspirin, Brilinta, beta-chiki and statin 3. Hypertension Continue home metoprolol and Diovan Patient Condition: Good Hospital Course Patient is an 81-year-old female with a history of hypertension and coronary disease status post PCI in the past. Patient presents with chest pain, troponins were negative 3 and her nuclear stress test was negative. Patient was felt to be stable for discharge, on the day of discharge patient's vitals, physical exam, labs were stable she had no acute complaints and questions answered. Home Meds Reported Medications Metoprolol Tartrate* (Lopressor*) 25 Mg Tab, 12.5 MG PO BID, #60 TAB 03/18/17 Ticagrelor* (Brilinta*) 90 Mg Tablet, 90 MG PO Q12, TAB 03/18/17 Ranolazine* (Ranexa*) 500 Mg Tab.sr.12h, 500 MG PO Q12, TAB 07/05/16 Valsartan* (Diovan*) 80 Mg Tablet, 80 MG PO BID, TAB 07/05/16 Atorvastatin* (Atorvastatin*) 40 Mg Tablet, 40 MG PO QHS, #30 TAB 07/05/16 Nitroglycerin* (Nitrostat*) 0.4 Mg Tab.subl, 0.4 MG SL Q5MIN Y for CHEST PAIN, BOTTLE 04/24/16 Omeprazole* (Omeprazole*) 20 Mg Capsule.dr, 20 MG PO DAILY, #30 CAP 04/24/16 Aspirin* (Aspirin* EC) 81 Mg Tablet.dr, 81 MG PO DAILY, TAB 04/24/16 Calcium Carbonate/Vitamin D3 (OYSTER SHELL CALCIUM + D TAB) 1 Each Tablet, 1 EACH PO BID, TAB 04/24/16 Discontinued Reported Medications Ticagrelor (Brilinta) 60 Mg Tablet, 60 MG PO Q12, TAB 07/05/16 Carvedilol* (Carvedilol*) 3.125 Mg Tablet, 3.125 MG PO BID, #60 TAB 07/05/16 Lorazepam* (Lorazepam*) 1 Mg Tablet, 1 MG PO HS Y for ANXIETY, #30 TAB 04/24/16 Meclizine Hcl* (Meclizine Hcl*) 12.5 Mg Tablet, 12.5 MG PO TID, TAB 04/24/16 Pentoxifylline* (Pentoxifylline*) 400 Mg Tablet.sa, 400 MG PO TID, TAB 04/24/16 Follow-up Plan Follow with PCP 1-2 weeks and cardiology as instructed Primary Care Provider Rebeka Omalley MD Time spent on discharge: > 30 minutes TYLER SAGASTUME Mar 20, 2017 16:29
== END 2017-03-20 19:10 | disposition home or self-care (01) ==
LOC: E/R 08:37 → MS4 10:27
PROVIDERS: ADMIT Hospitalist; ATTEND Hospitalist
DX: R07.9 Chest pain, unspecified (principal); I25.10 Atherosclerotic heart disease of native coronary artery without angina pectoris; I10 Essential (primary) hypertension
CPT/HCPCS: 36415; 71010; 78452; 80048; 80061; 82550; 82553; 83036; 83735; 84100; 84436; 84479; 84484; 85025; 85610; 85730; 93005; 93017; 93306; 99285; A9500; A9505; G0378; J2785

== ENCOUNTER 2018-04-28 10:42 | Observation (INO) | END 2018-04-29 18:45 | disposition home or self-care (01) ==